=== PATIENT | male | born 1975 | race Caucasian/White ===

== ENCOUNTER → 2023-04-14 06:36 | Day surgery (SDC) | payer BC, SELFPAY | LOC: GI 06:36 | PROVIDERS: ATTENDING PHYSICIAN Internal Medicine Gastroenterology | DX: Z12.11 Encounter for screening for malignant neoplasm of colon (principal); K57.30 Diverticulosis of large intestine without perforation or abscess without bleeding; D12.2 Benign neoplasm of ascending colon; D12.5 Benign neoplasm of sigmoid colon; D12.7 Benign neoplasm of rectosigmoid junction; D12.8 Benign neoplasm of rectum | CPT/HCPCS: 45385; 45381; 88305 ==

== ENCOUNTER 2023-07-07 06:10 | Day surgery (SDC) | payer BC, SELFPAY ==
[2023-07-07 09:03] VITALS: BP 125/88; BMI 23.1
[2023-07-07 09:20] VITALS: BMI 23.1
[2023-07-07 12:18] VITALS: BP 114/92
[2023-07-07 12:30] VITALS: BP 116/96
[2023-07-07 12:40] VITALS: BP 113/86
== END 2023-07-07 12:50 | disposition home or self-care (01) ==
LOC: GI 06:10
PROVIDERS: ATTENDING PHYSICIAN Internal Medicine Gastroenterology
DX: D12.2 Benign neoplasm of ascending colon (principal); D12.4 Benign neoplasm of descending colon; K64.0 First degree hemorrhoids; Z98.890 Other specified postprocedural states
CPT/HCPCS: 45390; 88305

== ENCOUNTER → 2023-08-24 06:38 | Outpatient (REF) | payer BC, SELFPAY | LOC: RAD 06:38 | PROVIDERS: ATTENDING PHYSICIAN Family Medicine | DX: R23.0 Cyanosis (principal) | CPT/HCPCS: 93923; 93930 ==

== ENCOUNTER → 2023-10-06 08:16 | Outpatient (REF) | payer BC, SELFPAY | LOC: RAD 08:16 | PROVIDERS: ATTENDING PHYSICIAN Registered Nurse; FAMILY PHYSICIAN Family Medicine | DX: I73.00 Raynaud's syndrome without gangrene (principal) | CPT/HCPCS: 93923 ==

== ENCOUNTER 2023-12-22 06:31 | Day surgery (SDC) | payer BC, SELFPAY ==
[2023-12-22 13:11] VITALS: BMI 23.6
[2023-12-22 13:12] VITALS: BMI 23.6
[2023-12-22 13:18] VITALS: BP 122/78
[2023-12-22 16:15] VITALS: BP 104/76
[2023-12-22 16:30] VITALS: BP 118/71
[2023-12-22 16:45] VITALS: BP 102/77
== END 2023-12-22 16:54 | disposition home or self-care (01) ==
LOC: GI 06:31
PROVIDERS: ATTENDING PHYSICIAN Internal Medicine Gastroenterology
DX: Z12.11 Encounter for screening for malignant neoplasm of colon (principal); K63.5 Polyp of colon; D17.5 Benign lipomatous neoplasm of intra-abdominal organs; T18.4XXA Foreign body in colon, initial encounter; Y83.1 Surgical operation with implant of artificial internal device as the cause of abnormal reaction of the patient, or of later complication, without mention of misadventure at the time of the procedure; K57.30 Diverticulosis of large intestine without perforation or abscess without bleeding; K64.0 First degree hemorrhoids; Z86.0101 Personal history of adenomatous and serrated colon polyps; Z98.890 Other specified postprocedural states
CPT/HCPCS: 45385; 88305